=== PATIENT | male | born 1955 | race Caucasian/White ===

== ENCOUNTER 2021-09-17 14:15 | Emergency (ER) | payer MEDICARE, MEDICAID ==
[~2021-09-17] VITALS: Ht 172.7 cm; Wt 90.9 kg
[~2021-09-17 14:15] MED LIST: ATOR20TA PO; CLIN150C8 PO; COU1T PO; FENO145T26 PO; LISI20TA28 PO; METF500T PO; OMEP-84 PO; PRED-352 CORPAK; WARF-113 PO
[2021-09-17 14:19] VITALS: BP 149/60
== END 2021-09-17 20:19 | disposition home or self-care (01) ==
LOC: ER 14:15
DX: H61.23 Impacted cerumen, bilateral (principal); E78.00 Pure hypercholesterolemia, unspecified; E11.9 Type 2 diabetes mellitus without complications; Z79.899 Other long term (current) drug therapy
CPT/HCPCS: 69210; 99284